=== PATIENT | female | born 1940 | race Caucasian/White ===

== ENCOUNTER 2020-01-05 15:30 | Emergency (ER) | payer MEDICARE ==
[~2020-01-05] VITALS: Ht 165.1 cm; Wt 59.0 kg
[~2020-01-05 15:30] MED LIST: ALENDRONATE SOD70 MG PO; AMITIZA 24 MCG24 MC1 PO; AMITRIPTYLINE H10 M3 PO; APAP W/CODEINE1 TA2 PO; ASPIRIN TRANSDERM; CALCIUM 600 +1 EAC1 PO; CENTRUM SILVER1 EAC4 PO; COQ-10100 MG PO; FISH OIL 1,001000 M2 PO; GLUCOSAMINE &1 EACH PO; MIRALAX17 GM PO; SYNTHROID100 MCG PO; TRIAMCINOLONE A80 G2 TOP; [UNRECOGNIZED DRUG - CODE] PO
[2020-01-05] MEDS ORDERED: VITAMIN C1000 MG PO (15:51)
[2020-01-05] MEDS ORDERED: BENEFIBER1 EAC1 PO (15:51)
[2020-01-05] MEDS ORDERED: MAGNESIUM250 M1 PO (15:51)
[2020-01-05] MEDS ORDERED: TURMERIC CURCUMIN (15:52)
[2020-01-05] MEDS ORDERED: PERSERVISION AREDS (15:52)
[2020-01-05] MEDS ORDERED: KEFLEX500 M1 PO (17:20)
[2020-01-05 17:40] VITALS: BP 115/50
== END 2020-01-05 17:41 | disposition home or self-care (01) ==
LOC: M.ERS 15:30
DX: S01.511A Laceration without foreign body of lip, initial encounter (principal); S80.212A Abrasion, left knee, initial encounter; S80.211A Abrasion, right knee, initial encounter; S60.512A Abrasion of left hand, initial encounter; S60.511A Abrasion of right hand, initial encounter; Z98.51 Tubal ligation status; E03.9 Hypothyroidism, unspecified; W18.39XA Other fall on same level, initial encounter; Y93.89 Activity, other specified; Y92.89 Other specified places as the place of occurrence of the external cause; Y99.8 Other external cause status

== ENCOUNTER 2020-01-12 12:47 | Emergency (ER) | payer MEDICARE ==
[~2020-01-12] VITALS: Ht 162.6 cm; Wt 54.4 kg
[~2020-01-12 12:47] MED LIST changes: +BENEFIBER1 EAC1 PO; +KEFLEX500 M1 PO; +MAGNESIUM250 M1 PO; +PERSERVISION AREDS; +TURMERIC CURCUMIN; +VITAMIN C1000 MG PO
[2020-01-12 13:11] VITALS: BP 131/62
== END 2020-01-12 13:11 | disposition home or self-care (01) ==
LOC: M.ERS 12:47
DX: S01.511D Laceration without foreign body of lip, subsequent encounter (principal); F41.9 Anxiety disorder, unspecified; E03.9 Hypothyroidism, unspecified; Z98.51 Tubal ligation status; W18.39XD Other fall on same level, subsequent encounter

== ENCOUNTER 2020-01-24 11:01 | Emergency (ER) | payer MEDICARE ==
[~2020-01-24] VITALS: Ht 162.6 cm; Wt 56.7 kg
[2020-01-24 11:15] VITALS: BP 147/63
== END 2020-01-24 11:27 | disposition home or self-care (01) ==
LOC: M.ERS 11:01
DX: S01.511D Laceration without foreign body of lip, subsequent encounter (principal); F41.9 Anxiety disorder, unspecified; Z98.51 Tubal ligation status; E03.9 Hypothyroidism, unspecified; X58.XXXD Exposure to other specified factors, subsequent encounter

== ENCOUNTER 2020-03-28 12:16 | Emergency (ER) | payer MEDICARE ==
[~2020-03-28] VITALS: Ht 162.6 cm; Wt 54.4 kg
[2020-03-28 12:44] LABS: HEMATOCRIT 37.3 % (37.0-47.0); HEMOGLOBIN 12.7 gm/dL (12.0-15.0); MCH 27.5 pg (26.0-34.0); MCHC 34.1 g/dL (28.0-37.0); MCV 80.8 fL (80.0-100.0); MPV 7.5 fl. (7.2-11.1); NUCLEATED RBCS 0 /100WBC; PLATELET COUNT* 313 thou/uL (150-400); RBC 4.62 mil/uL (4.20-5.00); RDW-CV 14.5 % (10.5-14.5)
[2020-03-28 12:53] LABS: CALCIUM 8.6 mg/dL (8.5-10.1); CREATININE 1.1 mg/dL (0.6-1.3); POTASSIUM 4.7 mmol/L (3.5-5.1)
[2020-03-28 12:57] LABS: ALBUMIN 3.6 g/dL (3.4-5.0); TOTAL BILIRUBIN 0.4 mg/dL (<0.1-1.0); TOTAL PROTEIN 7.4 g/dL (6.4-8.2)
[2020-03-28 13:10] LABS: URINE BILIRUBIN NEGATIVE (Negative); URINE BLOOD TRACE (Negative); URINE CLARITY CLEAR; URINE COLOR YELLOW; URINE GLUCOSE-RANDOM NEGATIVE (Negative); URINE KETONES NEGATIVE (Negative); URINE LEUKOCYTES-REFLEX NEGATIVE (Negative); URINE NITRITE-REFLEX NEGATIVE (Negative); URINE PROTEIN TRACE (Negative); URINE UROBILINOGEN 0.2 E.U./dl (0.2-1.0)
[2020-03-28 13:17] LABS: ABSOLUTE LYMPHOCYTES 1.8 thou/uL (0.8-5.3); ABSOLUTE MONOCYTES 0.5 thou/uL (0.0-1.2); ABSOLUTE NEUTROPHILS 2.8 thou/uL (1.6-8.1); ATYPICAL LYMPHS 6 %
[2020-03-28 13:18] LABS: PLATELET ESTIMATE ADEQUATE
--- NOTE | 2020-03-28 15:46 | EKG ---
[place] [address] ELECTROCARDIOGRAM REPORT Name: ROMANSARI Room: [facility]#: [id number] Admission: 03/28/20 Attend Phys: Discharge: Date of : 36 Date of Service: 03/28/20 1226 Report #: [id number] THIS REPORT FOR: //name// [facility] ED Test Date: 2020-03-28 Test Time: 12:26:22 Pat Name: SARI OWENS Department: Room: Gender: Sex [employer]: : 1940 Requested By: Alvin Garza Order Number: [id number] MD: Pan Dickey Measurements Intervals [place]or Rate: 91 P: 66 DC: 131 QRS: 10 QRSD: 91 T: -1 QT: 349 QTc: 430 Interpretive Statements Sinus rhythm Ventricular premature complex Probable left atrial enlargement Anterior infarct, old No previous ECG available for comparison Electronically Signed On 03-28-2020 15:46:35 CDT by Pan Dickey [email or web address] <ELECTRONICALLY SIGNED> By: Pan Dickey MD, [facility] 03/28/20 1546 1226 1226 Pan Dickey MD, [facility] /EPI
[2020-03-28 17:12] VITALS: BP 102/58
== END 2020-03-28 17:12 | disposition short-term general hospital (02) ==
LOC: M.ERS 12:16
PROVIDERS: Physician Assistant
DX: C79.71 Secondary malignant neoplasm of right adrenal gland (principal); E87.1 Hypo-osmolality and hyponatremia; E03.9 Hypothyroidism, unspecified; F41.9 Anxiety disorder, unspecified; Z20.828 Contact with and (suspected) exposure to other viral communicable diseases; Z90.49 Acquired absence of other specified parts of digestive tract; Z98.51 Tubal ligation status